=== PATIENT | male | born 1960 | race African-American/Black ===

== ENCOUNTER → 2019-06-06 | Outpatient (CLI) | payer BC ==
--- NOTE | 2019-06-06 19:29 | KCIC ---
EXAM: AP, oblique and lateral views of the left knee DATE: 06/06/2019 12:00 AM INDICATION: Left knee pain COMPARISON: No Prior FINDINGS: No evidence of acute fracture or dislocation. Bipartite patella. No left knee joint effusion. Patellar enthesopathy. IMPRESSION: No evidence of acute fracture or dislocation. Electronically signed by: Cortes Waldrop MD (06/06/2019 4:54 PM) [facility]
== END | disposition home or self-care (01) ==
LOC: KCIC 09:08
PROVIDERS: ATTEND Family Medicine
DX: M76.892 Other specified enthesopathies of left lower limb, excluding foot (principal); M25.562 Pain in left knee
CPT/HCPCS: 73562